=== PATIENT | male | born 1940 | race Caucasian/White ===

== ENCOUNTER 2020-05-23 06:55 | Day surgery (SDC) | payer OTHER ==
[~2020-05-23] VITALS: Ht 177.8 cm; Wt 93.3 kg
[~2020-05-23 06:55] MED LIST: AMLO5 PO; ASPI81EC PO; Amlodipine Bes2.5 MG PO; Aspir 8181 MG PO; BASAGLAR K100 UNIT/1 SC; BUME2 PO; Bystolic5 MG PO; CARV6.25 PO; CITA20 PO; COLACE100 MG PO; DOCU100 PO; EUTHYROX125 MCG PO; FURO40 PO; GAVILAX17 GM PO; GLIP5 PO; LEVO-T125 MCG PO; LEVSOD100 PO; MIRT15 PO; OMEP20ER PO; SERT50 PO; SITA25T2 PO; TERB250 PO; TORSE20 PO; VALS80 PO; Vitamin D2000 UNIT PO
== END 2020-05-23 08:39 | disposition home or self-care (01) ==
LOC: ORSCSDS 06:55
PROVIDERS: Ophthalmology
PROC: 08RJ3JZ Replacement of Right Lens with Synthetic Substitute, Percutaneous Approach (ICD-10-PCS; principal; 2020-05-23 08:00)
DX: H25.11 Age-related nuclear cataract, right eye (principal); I10 Essential (primary) hypertension; E11.9 Type 2 diabetes mellitus without complications; E03.9 Hypothyroidism, unspecified; I69.354 Hemiplegia and hemiparesis following cerebral infarction affecting left non-dominant side; Z79.899 Other long term (current) drug therapy
CPT/HCPCS: 82947; J2001; J2250; J3010; J3301; J7040; V2632

== ENCOUNTER → 2020-07-17 | Outpatient (CLI) | payer OTHER ==
[~2020-07-17] MED LIST changes: +CLIN300 PO; +MIRALAX17 GM PO; +Vitamin B-121000 MCG PO
[2020-07-17 13:39] LABS: Appearance, Urine Clear (Clear); Bilirubin, Urine Neg (Neg); Blood, Urine 1+ (Neg); Color, Urine Yellow (P-Yellow); Glucose Qualitative, Urine Neg (Neg); Ketones, Urine Neg (Neg); Leukocyte Esterase, Urine Neg (Neg); Nitrite, Urine Neg (Neg); Protein, Urine 1+ (Neg); Urobilinogen, Urine NORM (Normal)
[2020-07-17 13:50] LABS: Bacteria Not Seen /hpf; Squamous Epithelial Cells Not Seen /hpf (Few)
== END | disposition home or self-care (01) ==
LOC: PLD 10:24 → LAB SHORT 10:24
PROVIDERS: Internal Medicine
DX: N18.4 Chronic kidney disease, stage 4 (severe) (principal); R82.90 Unspecified abnormal findings in urine
CPT/HCPCS: 81001

== ENCOUNTER → 2020-09-05 | Outpatient (CLI) | payer OTHER | END | disposition home or self-care (01) | LOC: PLD 07:46 → LAB SHORT 07:46 | DX: C44.229 Squamous cell carcinoma of skin of left ear and external auricular canal (principal); L82.1 Other seborrheic keratosis | CPT/HCPCS: 88305 ==

== ENCOUNTER → 2020-09-18 | Outpatient (CLI) | payer OTHER ==
[2020-09-20 10:34] LABS: C DIFFICILE DNA NEGATIVE (Negative)
== END | disposition home or self-care (01) ==
LOC: LAB SHORT 14:25 → LAB 14:25 → LAB FUT 09-18 10:00
PROVIDERS: Internal Medicine
DX: R19.7 Diarrhea, unspecified (principal)
CPT/HCPCS: 87015; 87045; 87046; 87177; 87205; 87209; 87328; 87329; 87493; 87899

== ENCOUNTER 2020-12-26 08:31 | Day surgery (SDC) | payer OTHER ==
[~2020-12-26] VITALS: Ht 180.3 cm; Wt 93.0 kg
[~2020-12-26 08:31] MED LIST changes: -CLIN300 PO; -MIRALAX17 GM PO; -Vitamin B-121000 MCG PO
[2020-12-26] MEDS ORDERED: Vitamin B-121000 MCG PO (09:14)
[2020-12-26] MEDS ORDERED: MIRALAX17 GM PO (09:29)
[2020-12-26 09:32] LABS: Bun/Creatinine Ratio 18.1 (12.0-20.0); Calcium, Blood 8.4 mg/dL (8.5-10.1); Creatinine, Blood 2.32 mg/dL (0.60-1.20); Potassium, Blood 4.4 mmol/L (3.5-5.5)
[2020-12-26 10:01] LABS: International Normalized Ratio 1.05; Prothrombin Time Results 11.3 Sec (9.7-11.5)
[2020-12-26 11:13] LABS: BASOPHILS ABSOLUTE AUTO 0.05 K/mm3 (0.00-0.23); BASOPHILS PERCENT AUTO 1 % (0-2); EOSINOPHILS ABSOLUTE AUTO 0.23 K/mm3 (0.00-0.68); EOSINOPHILS PERCENT AUTO 3 % (0-6); Hematocrit 34.9 % (37.0-53.0); Hemoglobin 10.8 g/dL (13.5-17.5); IMMATURE GRAN ABSOLUTE AUTO 0.05 K/mm3 (0.00-0.10); IMMATURE GRAN PERCENT AUTO 1 % (0-1); LYMPHOCYTES ABSOLUTE AUTO 1.25 K/mm3 (0.84-5.20); LYMPHOCYTES PERCENT AUTO 15 % (21-46); MONOCYTES PERCENT AUTO 13 % (4-13); Mean Corpuscular HGB Conc 30.9 g/dL (31.5-36.5); Mean Corpuscular Volume 94 fL (80-100); NEUTROPHILS ABSOLUTE AUTO 5.89 K/mm3 (1.96-9.15); NEUTROPHILS PERCENT AUTO 69 % (41-73); Platelet Count 219 K/mm3 (150-400); RDW Coefficient Variation 13.2 % (11.7-14.2); RDW Standard Deviation 45.3 fL (35.1-46.3); Red Blood Cell Count 3.72 M/mm3 (4.30-5.90); White Blood Cell Count 8.57 K/mm3 (4.00-11.30)
--- NOTE | 2020-12-26 14:36 | NUR ---
ASSUMED CARE OF PATIENT, LYING FLAT IN THE BED, HOB RAISED 20 DEGREES AND OFFERED MEAL TRAY AND WATER. PATIENT DENIED MEAL TRAY BUT TOOK WATER. WATCHING TV. LEFT GROIN SITE CDI. UPDATED VIA PHONE.
--- NOTE | 2020-12-26 15:02 | NUR ---
DR. DURAND AT THE BEDSIDE AND WROTE FOR A WOUND CLINIC APPOINTMENT ORDER. CALLED WOUND CLINIC AND FAXED ALL NEEEDED PAPERWORK TO [phone] October. APPOINTMENT AT 0715 A.M.
--- NOTE | 2020-12-26 16:31 | NUR ---
ARRIVED AT [address] DURAND AT THE BEDSIDE. HE REVIEWED FULL CARE WITH THE AND PATIENT. WILL BE SENDING PATIENT TO WOUND CARE CLINIC FOR FOOT CARE.
--- NOTE | 2020-12-26 16:32 | NUR ---
REVEIWED DISCHARGE INSTRUCTIONS WITH THE AND WOUND CARE PAPERWORK. PATIENT HAS AN APPOINTMENT IN THE A.M. AT 0730. PIV REMOVED AND PRESSURE DRESSING APPLIED TO THE LEFT AC. NO MEDICATION CHANGES NOTED. LIFTING RESTRICTION REVIEWED AND VERBALIZED UNDERSTANDING. ASSSISTED PATIENT TO SITTING ON THE SIDE OF THE BED AND DRESSING. PATEITN UNABLE TO STAND WITHOUT ASSISTANCE. TRANSFERED TO THE WHEELCHAIR AND ALL BELONGINGS GATHERED. TO GO GET CAR AND RN TO WHEELCHAIR PATEINT TO THE CAR. DISCHARGED HOME.
== END 2020-12-26 22:59 | disposition home or self-care (01) ==
LOC: MHTC 08:31
PROVIDERS: Radiology Diagnostic Radiology
DX: E11.51 Type 2 diabetes mellitus with diabetic peripheral angiopathy without gangrene (principal); I70.244 Atherosclerosis of native arteries of left leg with ulceration of heel and midfoot; I70.235 Atherosclerosis of native arteries of right leg with ulceration of other part of foot; L97.429 Non-pressure chronic ulcer of left heel and midfoot with unspecified severity; L97.519 Non-pressure chronic ulcer of other part of right foot with unspecified severity; I12.9 Hypertensive chronic kidney disease with stage 1 through stage 4 chronic kidney disease, or unspecified chronic kidney disease; N18.4 Chronic kidney disease, stage 4 (severe); E11.22 Type 2 diabetes mellitus with diabetic chronic kidney disease; E03.9 Hypothyroidism, unspecified; Z87.891 Personal history of nicotine dependence
CPT/HCPCS: 37224; 37229; 37232; 75625; 75716; 75774; 76937; 80048; 85025; 85347; 85610; 99152; 99153; C1725; C1760; C1769; C1885; C1887; C1894; J1644; J2250; J3010; J7030; J7050; Q9967

== ENCOUNTER 2020-12-27 05:37 | Day surgery (SDC) | payer OTHER ==
[~2020-12-27 05:37] MED LIST changes: +MIRALAX17 GM PO; +Vitamin B-121000 MCG PO
== END 2020-12-27 22:49 | disposition home or self-care (01) ==
LOC: WOUND 05:37
DX: E11.621 Type 2 diabetes mellitus with foot ulcer (principal); L97.515 Non-pressure chronic ulcer of other part of right foot with muscle involvement without evidence of necrosis; L97.522 Non-pressure chronic ulcer of other part of left foot with fat layer exposed; I70.213 Atherosclerosis of native arteries of extremities with intermittent claudication, bilateral legs; R60.0 Localized edema; I12.9 Hypertensive chronic kidney disease with stage 1 through stage 4 chronic kidney disease, or unspecified chronic kidney disease; N18.9 Chronic kidney disease, unspecified; E11.22 Type 2 diabetes mellitus with diabetic chronic kidney disease; K21.9 Gastro-esophageal reflux disease without esophagitis; E03.9 Hypothyroidism, unspecified
CPT/HCPCS: 73630; 87071; 87075; 87077; 87186; 87205; G0463

== ENCOUNTER 2021-01-03 03:49 | Day surgery (SDC) | payer OTHER | END 2021-01-03 22:53 | disposition home or self-care (01) | LOC: WOUND 03:49 | DX: E11.621 Type 2 diabetes mellitus with foot ulcer (principal); L97.522 Non-pressure chronic ulcer of other part of left foot with fat layer exposed; L97.511 Non-pressure chronic ulcer of other part of right foot limited to breakdown of skin; I70.213 Atherosclerosis of native arteries of extremities with intermittent claudication, bilateral legs; R60.0 Localized edema; I12.9 Hypertensive chronic kidney disease with stage 1 through stage 4 chronic kidney disease, or unspecified chronic kidney disease; N18.9 Chronic kidney disease, unspecified; E11.22 Type 2 diabetes mellitus with diabetic chronic kidney disease; K21.9 Gastro-esophageal reflux disease without esophagitis | CPT/HCPCS: A9270 ==

== ENCOUNTER 2021-01-17 00:34 | Day surgery (SDC) | payer OTHER | END 2021-01-17 23:06 | disposition home or self-care (01) | LOC: WOUND 00:34 | DX: E11.621 Type 2 diabetes mellitus with foot ulcer (principal); L97.512 Non-pressure chronic ulcer of other part of right foot with fat layer exposed; L97.522 Non-pressure chronic ulcer of other part of left foot with fat layer exposed; I70.213 Atherosclerosis of native arteries of extremities with intermittent claudication, bilateral legs; R60.0 Localized edema; I12.9 Hypertensive chronic kidney disease with stage 1 through stage 4 chronic kidney disease, or unspecified chronic kidney disease; N18.9 Chronic kidney disease, unspecified; E11.22 Type 2 diabetes mellitus with diabetic chronic kidney disease | CPT/HCPCS: A9270 ==

== ENCOUNTER 2021-01-24 02:36 | Day surgery (SDC) | payer OTHER | END 2021-01-24 23:19 | disposition home or self-care (01) | LOC: WOUND 02:36 | DX: E11.621 Type 2 diabetes mellitus with foot ulcer (principal); L97.519 Non-pressure chronic ulcer of other part of right foot with unspecified severity; L97.429 Non-pressure chronic ulcer of left heel and midfoot with unspecified severity; E11.22 Type 2 diabetes mellitus with diabetic chronic kidney disease; N18.9 Chronic kidney disease, unspecified; E11.51 Type 2 diabetes mellitus with diabetic peripheral angiopathy without gangrene; I70.213 Atherosclerosis of native arteries of extremities with intermittent claudication, bilateral legs; R93.89 Abnormal findings on diagnostic imaging of other specified body structures; R60.0 Localized edema; M79.671 Pain in right foot; M86.9 Osteomyelitis, unspecified; M85.871 Other specified disorders of bone density and structure, right ankle and foot | CPT/HCPCS: 73630; A9270; G0463 ==

== ENCOUNTER 2021-01-31 07:57 | Day surgery (SDC) | payer OTHER ==
[~2021-01-31] VITALS: Ht 180.3 cm; Wt 94.0 kg
[2021-01-31] MEDS ORDERED: CLIN300 PO (08:46)
[2021-01-31 09:31] LABS: BASOPHILS ABSOLUTE AUTO 0.06 K/mm3 (0.00-0.23); BASOPHILS PERCENT AUTO 1 % (0-2); EOSINOPHILS ABSOLUTE AUTO 0.27 K/mm3 (0.00-0.68); EOSINOPHILS PERCENT AUTO 3 % (0-6); IMMATURE GRAN ABSOLUTE AUTO 0.09 K/mm3 (0.00-0.10); IMMATURE GRAN PERCENT AUTO 1 % (0-1); LYMPHOCYTES ABSOLUTE AUTO 1.26 K/mm3 (0.84-5.20); LYMPHOCYTES PERCENT AUTO 15 % (21-46); MONOCYTES ABSOLUTE AUTO 1.25 K/mm3 (0.16-1.47); MONOCYTES PERCENT AUTO 15 % (4-13); Mean Corpuscular HGB 28.5 pg (26.0-34.0); Mean Corpuscular HGB Conc 31.3 g/dL (31.5-36.5); Mean Corpuscular Volume 91 fL (80-100); Mean Platelet Volume 9.6 fL (9.1-12.4); NEUTROPHILS ABSOLUTE AUTO 5.61 K/mm3 (1.96-9.15); NEUTROPHILS PERCENT AUTO 66 % (41-73); Platelet Count 223 K/mm3 (150-400); RDW Coefficient Variation 13.1 % (11.7-14.2); RDW Standard Deviation 43.1 fL (35.1-46.3); Red Blood Cell Count 3.51 M/mm3 (4.30-5.90); White Blood Cell Count 8.54 K/mm3 (4.00-11.30)
[2021-01-31 09:44] LABS: Bun/Creatinine Ratio 18.4 (12.0-20.0); Calcium, Blood 8.5 mg/dL (8.5-10.1); Creatinine, Blood 2.44 mg/dL (0.60-1.20); Potassium, Blood 4.6 mmol/L (3.5-5.5)
[2021-01-31 09:49] LABS: International Normalized Ratio 1.06; Prothrombin Time Results 11.4 Sec (9.7-11.5)
--- NOTE | 2021-01-31 13:09 | NUR ---
PT RETURNED TO RECOVERY ROOM IN BED. RIGHT FEMORAL GROIN SITE SOFT NON-TENDER LITTLE PUFFY, NO HEMATOMA, NO PULSATILE BLEEDING WITH INTACT DRESSING. R DP PULSE DOPPLER. PT DENIES CHEST PAIN. CALL LIGHT IN REACH.
--- NOTE | 2021-01-31 14:22 | NUR ---
PT DRINKING APPLE JUICE AND EATING LUNCH. HOB UP 15 DEGREES.
--- NOTE | 2021-01-31 14:56 | NUR ---
FULL REPORT PROVIDED ELIER SIMPSON TO ASSUME CARE OF PT IN RECOVERY ROOM.
--- NOTE | 2021-01-31 15:18 | NUR ---
1455 ASSUMED CARE OF PATIENT. SBAR FROM ELIER LANGFORD.
--- NOTE | 2021-01-31 15:42 | NUR ---
1830 HERE. SAT PATIENT UP ON JOHN SIDE OF THE BED WITH ASSISTANCE. TRYED TO URINATE USING URINAL. UNABLE. WALKER GIVEN TO PATIENT AND HE WALKED INDEPENDENTLY TO THE RESTRROM.
--- NOTE | 2021-01-31 16:19 | NUR ---
PATIENT WALKED WITH WALKER BACK TO THE BEDSIDE AND SAT IN A CHAIR. ASSISTED WITH DRESSING. ALL BELONGINGS GATHERED AND RETAINED BY THE PATIENT. PIV REMOVED AND PRESSURE DRESSING APPLIED. REVIEWED ALL DISCAHRGE INSTRUCTIONS AND MEDICATION LIST WITH THE PATIENT AND HIS . ALL QUESTIONS ANSWERED.
--- NOTE | 2021-01-31 16:22 | NUR ---
PATIENT ASSISTED TO THE WHEELCHAIR AND TOOK PATIENT HOME. DISCHARGED AT 1623
== END 2021-01-31 16:20 | disposition home or self-care (01) ==
LOC: MHTC 07:57
PROVIDERS: Radiology Diagnostic Radiology
DX: I70.213 Atherosclerosis of native arteries of extremities with intermittent claudication, bilateral legs (principal); I12.9 Hypertensive chronic kidney disease with stage 1 through stage 4 chronic kidney disease, or unspecified chronic kidney disease; N18.4 Chronic kidney disease, stage 4 (severe); E11.22 Type 2 diabetes mellitus with diabetic chronic kidney disease; K21.9 Gastro-esophageal reflux disease without esophagitis; E03.9 Hypothyroidism, unspecified; Z79.899 Other long term (current) drug therapy
CPT/HCPCS: 76937; 80048; 85025; 85347; 85610; 99152; 99153; C1725; C1760; C1761; C1769; C1887; C1894; C2623; J2250; J3010; J7030; J7050; Q9967

== ENCOUNTER 2021-02-01 00:46 | Day surgery (SDC) | payer OTHER ==
[~2021-02-01 00:46] MED LIST changes: +CLIN300 PO
== END 2021-02-01 23:00 | disposition home or self-care (01) ==
LOC: WOUND 00:46
DX: E11.621 Type 2 diabetes mellitus with foot ulcer (principal); L97.512 Non-pressure chronic ulcer of other part of right foot with fat layer exposed; L97.522 Non-pressure chronic ulcer of other part of left foot with fat layer exposed; I70.213 Atherosclerosis of native arteries of extremities with intermittent claudication, bilateral legs; R60.0 Localized edema; R93.89 Abnormal findings on diagnostic imaging of other specified body structures; I12.9 Hypertensive chronic kidney disease with stage 1 through stage 4 chronic kidney disease, or unspecified chronic kidney disease; N18.9 Chronic kidney disease, unspecified; E11.22 Type 2 diabetes mellitus with diabetic chronic kidney disease; K21.9 Gastro-esophageal reflux disease without esophagitis; E03.9 Hypothyroidism, unspecified
CPT/HCPCS: A9270

== ENCOUNTER 2021-02-08 01:27 | Day surgery (SDC) | payer OTHER | END 2021-02-08 22:50 | disposition home or self-care (01) | LOC: WOUND 01:27 | DX: E11.621 Type 2 diabetes mellitus with foot ulcer (principal); L97.422 Non-pressure chronic ulcer of left heel and midfoot with fat layer exposed; L97.512 Non-pressure chronic ulcer of other part of right foot with fat layer exposed; E11.51 Type 2 diabetes mellitus with diabetic peripheral angiopathy without gangrene; I70.213 Atherosclerosis of native arteries of extremities with intermittent claudication, bilateral legs; R60.0 Localized edema; E11.22 Type 2 diabetes mellitus with diabetic chronic kidney disease; I12.9 Hypertensive chronic kidney disease with stage 1 through stage 4 chronic kidney disease, or unspecified chronic kidney disease; N18.9 Chronic kidney disease, unspecified; R93.89 Abnormal findings on diagnostic imaging of other specified body structures; M79.671 Pain in right foot; K21.9 Gastro-esophageal reflux disease without esophagitis; E03.9 Hypothyroidism, unspecified; Z86.73 Personal history of transient ischemic attack (TIA), and cerebral infarction without residual deficits | CPT/HCPCS: A9270 ==

== ENCOUNTER 2021-02-15 01:50 | Day surgery (SDC) | payer OTHER | END 2021-02-15 12:00 | disposition home or self-care (01) | LOC: WOUND 01:50 | DX: E11.621 Type 2 diabetes mellitus with foot ulcer (principal); L97.512 Non-pressure chronic ulcer of other part of right foot with fat layer exposed; L97.522 Non-pressure chronic ulcer of other part of left foot with fat layer exposed; I70.213 Atherosclerosis of native arteries of extremities with intermittent claudication, bilateral legs; R60.0 Localized edema; E11.22 Type 2 diabetes mellitus with diabetic chronic kidney disease; R93.89 Abnormal findings on diagnostic imaging of other specified body structures; M79.671 Pain in right foot | CPT/HCPCS: A9270 ==

== ENCOUNTER 2021-02-22 01:08 | Day surgery (SDC) | payer OTHER | END 2021-02-22 23:19 | disposition home or self-care (01) | LOC: WOUND 01:08 | DX: E11.621 Type 2 diabetes mellitus with foot ulcer (principal); L97.512 Non-pressure chronic ulcer of other part of right foot with fat layer exposed; L97.522 Non-pressure chronic ulcer of other part of left foot with fat layer exposed; I70.213 Atherosclerosis of native arteries of extremities with intermittent claudication, bilateral legs; E11.51 Type 2 diabetes mellitus with diabetic peripheral angiopathy without gangrene; E11.22 Type 2 diabetes mellitus with diabetic chronic kidney disease; R93.89 Abnormal findings on diagnostic imaging of other specified body structures; M79.671 Pain in right foot | CPT/HCPCS: A9270 ==

== ENCOUNTER 2021-03-01 08:00 | Day surgery (SDC) | payer OTHER | END 2021-03-01 23:59 | disposition home or self-care (01) | LOC: WOUND 08:00 | DX: E11.621 Type 2 diabetes mellitus with foot ulcer (principal); L97.512 Non-pressure chronic ulcer of other part of right foot with fat layer exposed; L97.522 Non-pressure chronic ulcer of other part of left foot with fat layer exposed; I70.213 Atherosclerosis of native arteries of extremities with intermittent claudication, bilateral legs; R60.0 Localized edema; E11.22 Type 2 diabetes mellitus with diabetic chronic kidney disease; R93.89 Abnormal findings on diagnostic imaging of other specified body structures; M79.671 Pain in right foot | CPT/HCPCS: A9270 ==

== ENCOUNTER 2021-03-08 01:39 | Day surgery (SDC) | payer OTHER | END 2021-03-08 23:42 | disposition home or self-care (01) | LOC: WOUND 01:39 | DX: E11.621 Type 2 diabetes mellitus with foot ulcer (principal); L97.519 Non-pressure chronic ulcer of other part of right foot with unspecified severity; L97.429 Non-pressure chronic ulcer of left heel and midfoot with unspecified severity; E11.51 Type 2 diabetes mellitus with diabetic peripheral angiopathy without gangrene; I70.213 Atherosclerosis of native arteries of extremities with intermittent claudication, bilateral legs; E08.22 Diabetes mellitus due to underlying condition with diabetic chronic kidney disease; N18.9 Chronic kidney disease, unspecified; R93.89 Abnormal findings on diagnostic imaging of other specified body structures | CPT/HCPCS: A9270 ==

== ENCOUNTER 2021-03-15 01:00 | Day surgery (SDC) | payer OTHER | END 2021-03-15 23:59 | disposition home or self-care (01) | LOC: WOUND 01:00 | DX: E11.621 Type 2 diabetes mellitus with foot ulcer (principal); L97.512 Non-pressure chronic ulcer of other part of right foot with fat layer exposed; L97.422 Non-pressure chronic ulcer of left heel and midfoot with fat layer exposed; E11.51 Type 2 diabetes mellitus with diabetic peripheral angiopathy without gangrene; I70.213 Atherosclerosis of native arteries of extremities with intermittent claudication, bilateral legs; E11.22 Type 2 diabetes mellitus with diabetic chronic kidney disease; R60.0 Localized edema; R93.89 Abnormal findings on diagnostic imaging of other specified body structures | CPT/HCPCS: 73630; A9270 ==

== ENCOUNTER 2021-03-22 02:31 | Day surgery (SDC) | payer OTHER | END 2021-03-22 23:32 | disposition home or self-care (01) | LOC: WOUND 02:31 | DX: E11.621 Type 2 diabetes mellitus with foot ulcer (principal); L97.512 Non-pressure chronic ulcer of other part of right foot with fat layer exposed; L97.422 Non-pressure chronic ulcer of left heel and midfoot with fat layer exposed; E11.51 Type 2 diabetes mellitus with diabetic peripheral angiopathy without gangrene; I70.213 Atherosclerosis of native arteries of extremities with intermittent claudication, bilateral legs; E11.22 Type 2 diabetes mellitus with diabetic chronic kidney disease; R60.0 Localized edema; R93.89 Abnormal findings on diagnostic imaging of other specified body structures | CPT/HCPCS: A9270 ==

== ENCOUNTER 2021-03-29 03:00 | Day surgery (SDC) | payer OTHER | END 2021-03-29 23:34 | disposition home or self-care (01) | LOC: WOUND 03:00 | DX: E11.621 Type 2 diabetes mellitus with foot ulcer (principal); L97.512 Non-pressure chronic ulcer of other part of right foot with fat layer exposed; L97.522 Non-pressure chronic ulcer of other part of left foot with fat layer exposed; E11.51 Type 2 diabetes mellitus with diabetic peripheral angiopathy without gangrene; I70.213 Atherosclerosis of native arteries of extremities with intermittent claudication, bilateral legs; R60.0 Localized edema; E11.22 Type 2 diabetes mellitus with diabetic chronic kidney disease; R93.89 Abnormal findings on diagnostic imaging of other specified body structures; M79.671 Pain in right foot | CPT/HCPCS: A9270 ==

== ENCOUNTER 2021-04-05 01:27 | Day surgery (SDC) | payer OTHER | END 2021-04-05 23:16 | disposition home or self-care (01) | LOC: WOUND 01:27 | DX: E11.621 Type 2 diabetes mellitus with foot ulcer (principal); L97.512 Non-pressure chronic ulcer of other part of right foot with fat layer exposed; L97.522 Non-pressure chronic ulcer of other part of left foot with fat layer exposed; E11.51 Type 2 diabetes mellitus with diabetic peripheral angiopathy without gangrene; I70.213 Atherosclerosis of native arteries of extremities with intermittent claudication, bilateral legs; R60.0 Localized edema; E11.22 Type 2 diabetes mellitus with diabetic chronic kidney disease; R93.89 Abnormal findings on diagnostic imaging of other specified body structures | CPT/HCPCS: A9270 ==

== ENCOUNTER 2021-04-12 01:53 | Day surgery (SDC) | payer OTHER | END 2021-04-12 23:28 | disposition home or self-care (01) | LOC: WOUND 01:53 | DX: E11.621 Type 2 diabetes mellitus with foot ulcer (principal); L97.512 Non-pressure chronic ulcer of other part of right foot with fat layer exposed; L97.522 Non-pressure chronic ulcer of other part of left foot with fat layer exposed; E11.51 Type 2 diabetes mellitus with diabetic peripheral angiopathy without gangrene; I70.213 Atherosclerosis of native arteries of extremities with intermittent claudication, bilateral legs; R60.0 Localized edema; R93.89 Abnormal findings on diagnostic imaging of other specified body structures; M79.671 Pain in right foot; I12.9 Hypertensive chronic kidney disease with stage 1 through stage 4 chronic kidney disease, or unspecified chronic kidney disease; N18.9 Chronic kidney disease, unspecified; E11.22 Type 2 diabetes mellitus with diabetic chronic kidney disease; K21.9 Gastro-esophageal reflux disease without esophagitis; E03.9 Hypothyroidism, unspecified | CPT/HCPCS: G0463 ==

== ENCOUNTER 2021-04-25 00:35 | Day surgery (SDC) | payer OTHER | END 2021-04-25 23:07 | disposition home or self-care (01) | LOC: WOUND 00:35 | DX: E11.621 Type 2 diabetes mellitus with foot ulcer (principal); L97.512 Non-pressure chronic ulcer of other part of right foot with fat layer exposed; L97.522 Non-pressure chronic ulcer of other part of left foot with fat layer exposed; E11.51 Type 2 diabetes mellitus with diabetic peripheral angiopathy without gangrene; I70.213 Atherosclerosis of native arteries of extremities with intermittent claudication, bilateral legs; R60.0 Localized edema; R93.89 Abnormal findings on diagnostic imaging of other specified body structures; M79.671 Pain in right foot; I12.9 Hypertensive chronic kidney disease with stage 1 through stage 4 chronic kidney disease, or unspecified chronic kidney disease; N18.9 Chronic kidney disease, unspecified; E11.22 Type 2 diabetes mellitus with diabetic chronic kidney disease; E03.9 Hypothyroidism, unspecified | CPT/HCPCS: A9270 ==

== ENCOUNTER 2021-05-03 01:24 | Day surgery (SDC) | payer OTHER | END 2021-05-03 23:52 | disposition home or self-care (01) | LOC: WOUND 01:24 | DX: E11.621 Type 2 diabetes mellitus with foot ulcer (principal); L97.512 Non-pressure chronic ulcer of other part of right foot with fat layer exposed; L97.522 Non-pressure chronic ulcer of other part of left foot with fat layer exposed; E11.51 Type 2 diabetes mellitus with diabetic peripheral angiopathy without gangrene; I70.213 Atherosclerosis of native arteries of extremities with intermittent claudication, bilateral legs; R60.0 Localized edema; R93.89 Abnormal findings on diagnostic imaging of other specified body structures; M79.671 Pain in right foot; I12.9 Hypertensive chronic kidney disease with stage 1 through stage 4 chronic kidney disease, or unspecified chronic kidney disease; N18.9 Chronic kidney disease, unspecified; E11.22 Type 2 diabetes mellitus with diabetic chronic kidney disease; E03.9 Hypothyroidism, unspecified | CPT/HCPCS: A9270; G0463 ==

== ENCOUNTER 2021-05-17 03:42 | Day surgery (SDC) | payer OTHER | END 2021-05-17 22:58 | disposition home or self-care (01) | LOC: WOUND 03:42 | DX: E11.621 Type 2 diabetes mellitus with foot ulcer (principal); L97.512 Non-pressure chronic ulcer of other part of right foot with fat layer exposed; L97.522 Non-pressure chronic ulcer of other part of left foot with fat layer exposed; L97.519 Non-pressure chronic ulcer of other part of right foot with unspecified severity | CPT/HCPCS: A9270 ==

== ENCOUNTER 2021-05-24 05:35 | Day surgery (SDC) | payer OTHER | END 2021-05-24 23:52 | disposition home or self-care (01) | LOC: WOUND 05:35 | DX: E11.621 Type 2 diabetes mellitus with foot ulcer (principal); L97.512 Non-pressure chronic ulcer of other part of right foot with fat layer exposed; L97.522 Non-pressure chronic ulcer of other part of left foot with fat layer exposed; E11.51 Type 2 diabetes mellitus with diabetic peripheral angiopathy without gangrene; I70.213 Atherosclerosis of native arteries of extremities with intermittent claudication, bilateral legs; R60.0 Localized edema; E11.22 Type 2 diabetes mellitus with diabetic chronic kidney disease; R93.89 Abnormal findings on diagnostic imaging of other specified body structures; M79.671 Pain in right foot | CPT/HCPCS: A9270; G0463 ==

== ENCOUNTER 2021-06-07 04:39 | Day surgery (SDC) | payer OTHER | END 2021-06-07 23:41 | disposition home or self-care (01) | LOC: WOUND 04:39 | DX: E11.621 Type 2 diabetes mellitus with foot ulcer (principal); L97.512 Non-pressure chronic ulcer of other part of right foot with fat layer exposed; L97.522 Non-pressure chronic ulcer of other part of left foot with fat layer exposed; I70.213 Atherosclerosis of native arteries of extremities with intermittent claudication, bilateral legs; R60.0 Localized edema; R93.89 Abnormal findings on diagnostic imaging of other specified body structures; I12.9 Hypertensive chronic kidney disease with stage 1 through stage 4 chronic kidney disease, or unspecified chronic kidney disease; N18.9 Chronic kidney disease, unspecified; E11.22 Type 2 diabetes mellitus with diabetic chronic kidney disease; E03.9 Hypothyroidism, unspecified; K21.9 Gastro-esophageal reflux disease without esophagitis | CPT/HCPCS: A9270 ==

== ENCOUNTER 2021-06-14 05:24 | Day surgery (SDC) | payer OTHER | END 2021-06-14 23:01 | disposition home or self-care (01) | LOC: WOUND 05:24 | DX: E11.621 Type 2 diabetes mellitus with foot ulcer (principal); L97.512 Non-pressure chronic ulcer of other part of right foot with fat layer exposed; L97.522 Non-pressure chronic ulcer of other part of left foot with fat layer exposed; E11.51 Type 2 diabetes mellitus with diabetic peripheral angiopathy without gangrene; I70.213 Atherosclerosis of native arteries of extremities with intermittent claudication, bilateral legs; R60.0 Localized edema; R93.89 Abnormal findings on diagnostic imaging of other specified body structures; M79.671 Pain in right foot; I12.9 Hypertensive chronic kidney disease with stage 1 through stage 4 chronic kidney disease, or unspecified chronic kidney disease; N18.9 Chronic kidney disease, unspecified; E11.22 Type 2 diabetes mellitus with diabetic chronic kidney disease; E03.9 Hypothyroidism, unspecified; K21.9 Gastro-esophageal reflux disease without esophagitis | CPT/HCPCS: A9270 ==

== ENCOUNTER 2021-06-26 02:08 | Day surgery (SDC) | payer OTHER | END 2021-06-26 23:14 | disposition home or self-care (01) | LOC: WOUND 02:08 | DX: E11.621 Type 2 diabetes mellitus with foot ulcer (principal); L97.512 Non-pressure chronic ulcer of other part of right foot with fat layer exposed; L97.522 Non-pressure chronic ulcer of other part of left foot with fat layer exposed; L89.312 Pressure ulcer of right buttock, stage 2; E11.51 Type 2 diabetes mellitus with diabetic peripheral angiopathy without gangrene; I70.213 Atherosclerosis of native arteries of extremities with intermittent claudication, bilateral legs; I12.9 Hypertensive chronic kidney disease with stage 1 through stage 4 chronic kidney disease, or unspecified chronic kidney disease; E11.22 Type 2 diabetes mellitus with diabetic chronic kidney disease; N18.9 Chronic kidney disease, unspecified; K21.9 Gastro-esophageal reflux disease without esophagitis; E03.9 Hypothyroidism, unspecified; Z86.73 Personal history of transient ischemic attack (TIA), and cerebral infarction without residual deficits | CPT/HCPCS: A9270 ==

== ENCOUNTER 2021-07-03 01:17 | Day surgery (SDC) | payer OTHER | END 2021-07-03 23:27 | disposition home or self-care (01) | LOC: WOUND 01:17 | DX: E11.621 Type 2 diabetes mellitus with foot ulcer (principal); L97.519 Non-pressure chronic ulcer of other part of right foot with unspecified severity; L97.429 Non-pressure chronic ulcer of left heel and midfoot with unspecified severity; E11.51 Type 2 diabetes mellitus with diabetic peripheral angiopathy without gangrene; I70.213 Atherosclerosis of native arteries of extremities with intermittent claudication, bilateral legs; R60.0 Localized edema; E11.22 Type 2 diabetes mellitus with diabetic chronic kidney disease; R93.89 Abnormal findings on diagnostic imaging of other specified body structures | CPT/HCPCS: G0463 ==

== ENCOUNTER 2021-07-12 05:14 | Day surgery (SDC) | payer OTHER | END 2021-07-12 23:56 | disposition home or self-care (01) | LOC: WOUND | DX: E11.621 Type 2 diabetes mellitus with foot ulcer (principal); L97.522 Non-pressure chronic ulcer of other part of left foot with fat layer exposed; L97.519 Non-pressure chronic ulcer of other part of right foot with unspecified severity; L89.312 Pressure ulcer of right buttock, stage 2; L89.322 Pressure ulcer of left buttock, stage 2; E11.51 Type 2 diabetes mellitus with diabetic peripheral angiopathy without gangrene; I70.213 Atherosclerosis of native arteries of extremities with intermittent claudication, bilateral legs; R60.0 Localized edema; I12.9 Hypertensive chronic kidney disease with stage 1 through stage 4 chronic kidney disease, or unspecified chronic kidney disease; N18.9 Chronic kidney disease, unspecified; E11.22 Type 2 diabetes mellitus with diabetic chronic kidney disease; R93.89 Abnormal findings on diagnostic imaging of other specified body structures; M79.671 Pain in right foot; E03.9 Hypothyroidism, unspecified | CPT/HCPCS: A9270; G0463 ==

== ENCOUNTER 2021-07-31 05:17 | Day surgery (SDC) | payer OTHER | END 2021-07-31 23:46 | disposition home or self-care (01) | LOC: WOUND 05:17 | DX: E11.621 Type 2 diabetes mellitus with foot ulcer (principal); L97.422 Non-pressure chronic ulcer of left heel and midfoot with fat layer exposed; L97.519 Non-pressure chronic ulcer of other part of right foot with unspecified severity; L89.312 Pressure ulcer of right buttock, stage 2; L89.322 Pressure ulcer of left buttock, stage 2; E11.51 Type 2 diabetes mellitus with diabetic peripheral angiopathy without gangrene; I70.213 Atherosclerosis of native arteries of extremities with intermittent claudication, bilateral legs; R60.0 Localized edema; R93.89 Abnormal findings on diagnostic imaging of other specified body structures; E11.22 Type 2 diabetes mellitus with diabetic chronic kidney disease; I12.9 Hypertensive chronic kidney disease with stage 1 through stage 4 chronic kidney disease, or unspecified chronic kidney disease; N18.9 Chronic kidney disease, unspecified; E03.9 Hypothyroidism, unspecified; K21.9 Gastro-esophageal reflux disease without esophagitis | CPT/HCPCS: A9270; G0463 ==

== ENCOUNTER 2021-08-16 05:18 | Day surgery (SDC) | payer OTHER | END 2021-08-16 12:00 | disposition home or self-care (01) | LOC: WOUND 05:18 | DX: E11.621 Type 2 diabetes mellitus with foot ulcer (principal); E11.51 Type 2 diabetes mellitus with diabetic peripheral angiopathy without gangrene; E11.22 Type 2 diabetes mellitus with diabetic chronic kidney disease; L97.512 Non-pressure chronic ulcer of other part of right foot with fat layer exposed; L97.522 Non-pressure chronic ulcer of other part of left foot with fat layer exposed; L89.153 Pressure ulcer of sacral region, stage 3; I70.213 Atherosclerosis of native arteries of extremities with intermittent claudication, bilateral legs; N18.9 Chronic kidney disease, unspecified; R60.0 Localized edema | CPT/HCPCS: A9270; G0463 ==

== ENCOUNTER 2021-08-17 13:18 | Emergency (ER) | payer OTHER ==
[~2021-08-17] VITALS: Ht 180.3 cm; Wt 77.1 kg
== END 2021-08-17 14:42 | disposition home or self-care (01) ==
LOC: ER 13:18
DX: S00.03XA Contusion of scalp, initial encounter (principal); E11.9 Type 2 diabetes mellitus without complications; E03.9 Hypothyroidism, unspecified; I10 Essential (primary) hypertension; Z86.73 Personal history of transient ischemic attack (TIA), and cerebral infarction without residual deficits; Z79.899 Other long term (current) drug therapy; Z87.891 Personal history of nicotine dependence; W18.30XA Fall on same level, unspecified, initial encounter
CPT/HCPCS: 70450; 93005; 93010; 99284-25

== ENCOUNTER 2021-08-20 03:58 | Day surgery (SDC) | payer OTHER | END 2021-08-20 23:28 | disposition home or self-care (01) | LOC: WOUND 03:58 | DX: E11.621 Type 2 diabetes mellitus with foot ulcer (principal); L97.522 Non-pressure chronic ulcer of other part of left foot with fat layer exposed; L97.512 Non-pressure chronic ulcer of other part of right foot with fat layer exposed; I70.213 Atherosclerosis of native arteries of extremities with intermittent claudication, bilateral legs; R60.0 Localized edema; R93.89 Abnormal findings on diagnostic imaging of other specified body structures; M79.671 Pain in right foot; E11.22 Type 2 diabetes mellitus with diabetic chronic kidney disease; N18.9 Chronic kidney disease, unspecified; L89.323 Pressure ulcer of left buttock, stage 3; S61.512A Laceration without foreign body of left wrist, initial encounter; S51.812A Laceration without foreign body of left forearm, initial encounter; X58.XXXA Exposure to other specified factors, initial encounter | CPT/HCPCS: A9270; G0463 ==

== ENCOUNTER 2021-08-30 00:41 | Day surgery (SDC) | payer OTHER | END 2021-08-30 23:44 | disposition home or self-care (01) | LOC: WOUND 00:41 | DX: E11.621 Type 2 diabetes mellitus with foot ulcer (principal); L97.522 Non-pressure chronic ulcer of other part of left foot with fat layer exposed; E11.51 Type 2 diabetes mellitus with diabetic peripheral angiopathy without gangrene; I70.213 Atherosclerosis of native arteries of extremities with intermittent claudication, bilateral legs; R60.0 Localized edema; E11.22 Type 2 diabetes mellitus with diabetic chronic kidney disease; N18.9 Chronic kidney disease, unspecified; R93.89 Abnormal findings on diagnostic imaging of other specified body structures; M79.671 Pain in right foot; L89.323 Pressure ulcer of left buttock, stage 3; S61.402A Unspecified open wound of left hand, initial encounter; S61.502A Unspecified open wound of left wrist, initial encounter; S51.802A Unspecified open wound of left forearm, initial encounter; X58.XXXA Exposure to other specified factors, initial encounter; Z86.31 Personal history of diabetic foot ulcer | CPT/HCPCS: A9270; G0463 ==

== ENCOUNTER 2021-09-20 00:58 | Day surgery (SDC) | payer OTHER | END 2021-09-20 12:00 | disposition home or self-care (01) | LOC: WOUND 00:58 | DX: E11.621 Type 2 diabetes mellitus with foot ulcer (principal); L97.522 Non-pressure chronic ulcer of other part of left foot with fat layer exposed; L89.323 Pressure ulcer of left buttock, stage 3; L89.313 Pressure ulcer of right buttock, stage 3; E11.51 Type 2 diabetes mellitus with diabetic peripheral angiopathy without gangrene; I70.219 Atherosclerosis of native arteries of extremities with intermittent claudication, unspecified extremity; I12.9 Hypertensive chronic kidney disease with stage 1 through stage 4 chronic kidney disease, or unspecified chronic kidney disease; E11.22 Type 2 diabetes mellitus with diabetic chronic kidney disease; N18.9 Chronic kidney disease, unspecified; K21.9 Gastro-esophageal reflux disease without esophagitis; E03.9 Hypothyroidism, unspecified | CPT/HCPCS: A9270; G0463 ==

== ENCOUNTER 2021-10-04 00:35 | Day surgery (SDC) | payer OTHER | END 2021-10-04 23:59 | disposition home or self-care (01) | LOC: WOUND 00:35 | DX: E11.621 Type 2 diabetes mellitus with foot ulcer (principal); L97.522 Non-pressure chronic ulcer of other part of left foot with fat layer exposed; L89.313 Pressure ulcer of right buttock, stage 3; L89.323 Pressure ulcer of left buttock, stage 3; E11.51 Type 2 diabetes mellitus with diabetic peripheral angiopathy without gangrene; I70.213 Atherosclerosis of native arteries of extremities with intermittent claudication, bilateral legs; E11.22 Type 2 diabetes mellitus with diabetic chronic kidney disease; I12.9 Hypertensive chronic kidney disease with stage 1 through stage 4 chronic kidney disease, or unspecified chronic kidney disease; N18.9 Chronic kidney disease, unspecified; E03.9 Hypothyroidism, unspecified; K21.9 Gastro-esophageal reflux disease without esophagitis; Z86.73 Personal history of transient ischemic attack (TIA), and cerebral infarction without residual deficits | CPT/HCPCS: A9270 ==

== ENCOUNTER 2021-11-15 01:01 | Day surgery (SDC) | payer OTHER | END 2021-11-15 23:00 | disposition home or self-care (01) | LOC: WOUND 01:01 | DX: E11.621 Type 2 diabetes mellitus with foot ulcer (principal); L97.422 Non-pressure chronic ulcer of left heel and midfoot with fat layer exposed; L97.519 Non-pressure chronic ulcer of other part of right foot with unspecified severity; L89.313 Pressure ulcer of right buttock, stage 3; L89.323 Pressure ulcer of left buttock, stage 3; E11.51 Type 2 diabetes mellitus with diabetic peripheral angiopathy without gangrene; I70.213 Atherosclerosis of native arteries of extremities with intermittent claudication, bilateral legs; R60.0 Localized edema; E11.22 Type 2 diabetes mellitus with diabetic chronic kidney disease; R93.89 Abnormal findings on diagnostic imaging of other specified body structures; M79.671 Pain in right foot; I12.9 Hypertensive chronic kidney disease with stage 1 through stage 4 chronic kidney disease, or unspecified chronic kidney disease; N18.9 Chronic kidney disease, unspecified | CPT/HCPCS: A9270; G0463 ==

== ENCOUNTER 2021-11-29 00:26 | Day surgery (SDC) | payer OTHER | END 2021-11-29 23:00 | disposition home or self-care (01) | LOC: WOUND 00:26 | DX: E11.621 Type 2 diabetes mellitus with foot ulcer (principal); L97.522 Non-pressure chronic ulcer of other part of left foot with fat layer exposed; L89.323 Pressure ulcer of left buttock, stage 3; S61.412A Laceration without foreign body of left hand, initial encounter; I12.9 Hypertensive chronic kidney disease with stage 1 through stage 4 chronic kidney disease, or unspecified chronic kidney disease; E11.22 Type 2 diabetes mellitus with diabetic chronic kidney disease; N18.9 Chronic kidney disease, unspecified; K21.9 Gastro-esophageal reflux disease without esophagitis; E03.9 Hypothyroidism, unspecified; E11.51 Type 2 diabetes mellitus with diabetic peripheral angiopathy without gangrene; I70.213 Atherosclerosis of native arteries of extremities with intermittent claudication, bilateral legs; Z86.73 Personal history of transient ischemic attack (TIA), and cerebral infarction without residual deficits; X58.XXXA Exposure to other specified factors, initial encounter | CPT/HCPCS: A9270; G0463 ==

== ENCOUNTER → 2022-01-10 | Outpatient (CLI) | payer OTHER ==
[2022-01-10 18:54] LABS: Appearance, Urine Clear (Clear); Bilirubin, Urine Neg (Neg); Blood, Urine Neg (Neg); Glucose Qualitative, Urine Neg (Neg); Ketones, Urine Neg (Neg); Leukocyte Esterase, Urine Neg (Neg); Nitrite, Urine Neg (Neg); Protein, Urine Neg (Neg); Specific Gravity, Urine 1.015 (1.003-1.022); Urobilinogen, Urine NORM (Normal)
[2022-01-10 18:59] LABS: Color, Urine Pale Yellow (P-Yellow)
== END | disposition home or self-care (01) ==
LOC: LAB 18:41 → LAB SHORT 18:41
PROVIDERS: Internal Medicine Nephrology
DX: N18.4 Chronic kidney disease, stage 4 (severe) (principal); N39.0 Urinary tract infection, site not specified; R30.9 Painful micturition, unspecified
CPT/HCPCS: 81003; 87077; 87086; 87186